=== PATIENT | male | born 1965 | race Caucasian/White ===

== ENCOUNTER → 2016-10-10 | Outpatient (CLI) | payer BC ==
[2016-10-10 08:00] LABS: BUN/CREATININE RATIO 13 (0-10)
[2016-10-10 08:17] LABS: HEMOGLOBIN 14.3 gm/dl (14.0-17.5); RED BLOOD COUNT 4.75 M/UL (4.20-5.50); WHITE BLOOD COUNT 4.2 K/UL (4.5-11.0)
== END ==
LOC: LAB 07:11
PROVIDERS: Internal Medicine
DX: I10 Essential (primary) hypertension (principal); E78.5 Hyperlipidemia, unspecified; R53.81 Other malaise; R53.83 Other fatigue; Z12.5 Encounter for screening for malignant neoplasm of prostate
CPT/HCPCS: 36415; 80053; 80061; 84153; 84439; 84443; 85027

== ENCOUNTER → 2017-03-29 | Outpatient (CLI) | payer BC ==
[2017-03-29 07:02] LABS: HEMOGLOBIN 14.2 gm/dl (14.0-17.5); RED BLOOD COUNT 4.79 M/UL (4.20-5.50); WHITE BLOOD COUNT 5.1 K/UL (4.5-11.0)
[2017-03-29 07:19] LABS: BUN/CREATININE RATIO 13 (0-10)
== END ==
LOC: LAB 06:35
PROVIDERS: Internal Medicine
DX: E78.5 Hyperlipidemia, unspecified (principal); I10 Essential (primary) hypertension; R53.81 Other malaise; R53.83 Other fatigue; M25.50 Pain in unspecified joint
CPT/HCPCS: 36415; 80053; 80061; 84550; 85027

== ENCOUNTER → 2020-11-15 | Outpatient (CLI) | payer BC ==
[2020-11-15 07:15] LABS: HEMOGLOBIN 13.9 gm/dl (14.0-17.5); RED BLOOD COUNT 4.52 M/UL (4.20-5.50); WHITE BLOOD COUNT 4.3 K/UL (4.5-11.0)
[2020-11-15 07:26] LABS: BUN/CREATININE RATIO 12 (0-10)
[2020-11-16 09:14] LABS: VITAMIN D, 25-HYDROXY 16.4 ng/mL (30.0-100.0)
[2020-11-16 12:14] LABS: RHEUMATOID ARTHRITIS FACTOR <10.0 IU/mL (0.0-13.9)
[2020-11-18 01:07] LABS: CCP ANTIBODIES IGG/IGA 4 units (0-19)
== END ==
LOC: LAB 06:11
PROVIDERS: Internal Medicine
DX: Z09 Encounter for follow-up examination after completed treatment for conditions other than malignant neoplasm (principal); Z12.5 Encounter for screening for malignant neoplasm of prostate; C64.9 Malignant neoplasm of unspecified kidney, except renal pelvis; D18.09 Hemangioma of other sites; E55.9 Vitamin D deficiency, unspecified; E78.2 Mixed hyperlipidemia; E79.0 Hyperuricemia without signs of inflammatory arthritis and tophaceous disease; E89.2 Postprocedural hypoparathyroidism; D63.0 Anemia in neoplastic disease; I10 Essential (primary) hypertension; J33.9 Nasal polyp, unspecified; M51.17 Intervertebral disc disorders with radiculopathy, lumbosacral region; K21.9 Gastro-esophageal reflux disease without esophagitis; K63.5 Polyp of colon; M19.90 Unspecified osteoarthritis, unspecified site; R20.0 Anesthesia of skin; R20.2 Paresthesia of skin; R76.8 Other specified abnormal immunological findings in serum; Z68.38 Body mass index [BMI] 38.0-38.9, adult; Z71.3 Dietary counseling and surveillance; Z85.528 Personal history of other malignant neoplasm of kidney; Z86.010 Personal history of colon polyps; Z90.49 Acquired absence of other specified parts of digestive tract; Z90.5 Acquired absence of kidney; Z98.890 Other specified postprocedural states
CPT/HCPCS: 36415; 80053; 80061; 82607; 82728; 82746; 83540; 83550; 83970; 84153; 84550; 85025; 85652; 86038; 86140; 86200; 86431

== ENCOUNTER → 2021-03-07 | Outpatient (CLI) | payer BC ==
[2021-03-07 07:05] LABS: BUN/CREATININE RATIO 12 (0-10)
[2021-03-07 07:35] LABS: RED BLOOD COUNT 4.86 M/UL (4.20-5.50); WHITE BLOOD COUNT 4.6 K/UL (4.5-11.0)
== END ==
LOC: LAB 06:03
PROVIDERS: Internal Medicine
DX: C64.9 Malignant neoplasm of unspecified kidney, except renal pelvis (principal); D18.09 Hemangioma of other sites; D64.9 Anemia, unspecified; E55.9 Vitamin D deficiency, unspecified; E78.2 Mixed hyperlipidemia; E79.0 Hyperuricemia without signs of inflammatory arthritis and tophaceous disease; E89.2 Postprocedural hypoparathyroidism; I10 Essential (primary) hypertension; J33.8 Other polyp of sinus; K21.9 Gastro-esophageal reflux disease without esophagitis; K75.81 Nonalcoholic steatohepatitis (NASH); M19.90 Unspecified osteoarthritis, unspecified site; M51.26 Other intervertebral disc displacement, lumbar region; M54.16 Radiculopathy, lumbar region; M54.42 Lumbago with sciatica, left side; R20.0 Anesthesia of skin; R20.2 Paresthesia of skin; R76.8 Other specified abnormal immunological findings in serum; Z09 Encounter for follow-up examination after completed treatment for conditions other than malignant neoplasm; Z12.5 Encounter for screening for malignant neoplasm of prostate; Z71.3 Dietary counseling and surveillance; Z86.010 Personal history of colon polyps; Z90.49 Acquired absence of other specified parts of digestive tract; Z90.5 Acquired absence of kidney; Z98.890 Other specified postprocedural states; Z68.37 Body mass index [BMI] 37.0-37.9, adult
CPT/HCPCS: 36415; 80053; 80061; 82607; 82746; 84550; 85025

== ENCOUNTER → 2021-05-19 | Outpatient (CLI) | payer BC | LOC: US 12:16 | DX: C64.1 Malignant neoplasm of right kidney, except renal pelvis (principal) | CPT/HCPCS: 71046 ==

== ENCOUNTER → 2022-03-05 | Outpatient (CLI) | payer BC ==
[2022-03-05 07:14] LABS: HEMOGLOBIN 14.3 gm/dl (14.0-17.5); RED BLOOD COUNT 4.7 M/UL (4.20-5.50); WHITE BLOOD COUNT 5.9 K/UL (4.5-11.0)
[2022-03-05 13:28] LABS: BUN/CREATININE RATIO 14 (0-10)
[2022-03-06 08:19] LABS: PROSTATE SPECIFIC AG, SERUM 0.5 ng/mL (0.0-4.0); VITAMIN D, 25-HYDROXY 25.2 ng/mL (30.0-100.0)
== END ==
LOC: LAB 06:24
PROVIDERS: Internal Medicine
DX: C64.9 Malignant neoplasm of unspecified kidney, except renal pelvis (principal); D18.09 Hemangioma of other sites; D64.9 Anemia, unspecified; E55.9 Vitamin D deficiency, unspecified; E78.2 Mixed hyperlipidemia; E79.0 Hyperuricemia without signs of inflammatory arthritis and tophaceous disease; E89.2 Postprocedural hypoparathyroidism; I10 Essential (primary) hypertension; J33.8 Other polyp of sinus; K21.9 Gastro-esophageal reflux disease without esophagitis; K63.5 Polyp of colon; K75.81 Nonalcoholic steatohepatitis (NASH); M19.90 Unspecified osteoarthritis, unspecified site; M51.26 Other intervertebral disc displacement, lumbar region; M54.16 Radiculopathy, lumbar region; M54.42 Lumbago with sciatica, left side; R20.0 Anesthesia of skin; R20.2 Paresthesia of skin; R76.8 Other specified abnormal immunological findings in serum; R79.89 Other specified abnormal findings of blood chemistry; Z12.5 Encounter for screening for malignant neoplasm of prostate; Z68.37 Body mass index [BMI] 37.0-37.9, adult; Z71.3 Dietary counseling and surveillance; Z85.528 Personal history of other malignant neoplasm of kidney; Z86.010 Personal history of colon polyps; Z90.49 Acquired absence of other specified parts of digestive tract; Z90.5 Acquired absence of kidney; Z98.890 Other specified postprocedural states
CPT/HCPCS: 36415; 80053; 80061; 82607; 82746; 84153; 85025